=== PATIENT | male | born 1965 ===

== ENCOUNTER 2021-01-14 16:59 | Emergency (ER) | payer OTHER ==
[~2021-01-14] VITALS: Ht 177.8 cm; Wt 102.1 kg
[2021-01-14 20:04] LABS: Urine Bacteria NONE SEEN /hpf (None Seen); Urine Blood Negative /uL (Negative); Urine Mucus MODERATE (None Seen); Urine Specific Gravity 1.033 (1.001-1.035); Urine WBC 4 /hpf (0 - 3)
[2021-01-14 23:20] VITALS: BP 108/64
== END 2021-01-14 23:25 | disposition home or self-care (01) ==
LOC: ER 16:59
DX: N43.3 Hydrocele, unspecified (principal)
CPT/HCPCS: 76870; 81001